=== PATIENT | female | born 1990 | race Caucasian/White ===

== ENCOUNTER 2018-05-06 11:40 | Day surgery (SDC) | payer BC, MEDICAID ==
[2018-05-03 15:20] LABS: BASOPHILS % (AUTO) 0.3 % (0-1); EOSINOPHILS # (AUTO) 0.1 X10'3 (0-0.9); EOSINOPHILS % (AUTO) 1.3 % (0-6); LYMPHOCYTES # (AUTO) 1.5 X10'3 (1.1-4.8); LYMPHOCYTES % (AUTO) 24.4 % (21-51); MEAN CORPUSCULAR HEMOGLOBIN 30.1 PG (27.0-31.0); MEAN CORPUSCULAR HGB CONC 34.7 % (33.0-36.5); MEAN CORPUSCULAR VOLUME 86.8 FL (78-98); MEAN PLATELET VOLUME 9.3 FL (7.4-10.4); MONOCYTES # (AUTO) 0.3 X10'3 (0-0.9); MONOCYTES % (AUTO) 5.3 % (2-12); NEUTROPHILS # (AUTO) 4.3 X10'3 (1.8-7.7); NEUTROPHILS % (AUTO) 68.7 % (42-75); PRE OP HEMATOCRIT 38.6 % (35.0-45.0); PRE OP HEMOGLOBIN 13.4 g/dL (12.0-16.0); PRE OP PLATELET COUNT 250 X10'3 (140-440); RED BLOOD COUNT 4.44 X10'6 (4.20-5.60); RED CELL DISTRIBUTION WIDTH 13.8 % (11.5-14.5)
[2018-05-03 15:54] LABS: HCG SERUM QL NEGATIVE
[2018-05-06] VITALS (8 sets, daily range): BP systolic 102–128; BP diastolic 55–79
[~2018-05-06] VITALS: Ht 170.2 cm; Wt 96.0 kg
[~2018-05-06 11:40] MED LIST: NO HOME MEDS; famotidine 20mg tablet PO ONE; ringers solution, lacted 1,000 ML IV SCH
[2018-05-06] MEDS ORDERED: ringers solution, lacted 1,000 ML IV SCH (15:33)
[2018-05-06] MEDS ORDERED: proCHLORperazine 10 MG/2 ml inj IV PRN (15:35)
[2018-05-06] MEDS ORDERED: morphine 4 MG/ML inj SYRINge IV PRN ×2 (15:35)
[2018-05-06] MEDS ORDERED: meperidine/PF 25mg/ml syringe IV PRN ×3 (15:35)
[2018-05-06] MEDS ORDERED: ondansetron/PF 4mg/2ml inj IV PRN (15:35)
[2018-05-06] MEDS ORDERED: ROPIVAcaine 0.5% (5mg/ml) 30ml vial ONE (16:16)
[2018-05-06] MEDS ORDERED: sevoflurane 250ml liquid IH ONE (16:32)
[2018-05-06] MEDS ORDERED: dexamethasone sod phosphate 10mg/ml inj ONE (16:32)
[2018-05-06] MEDS ORDERED: neostigmine methylsulfate 1 MG/ML 10ml vial ONE (16:32)
[2018-05-06] MEDS ORDERED: ketorolac trometh. 30mg/ml inj. ONE (16:32)
[2018-05-06] MEDS ORDERED: glycopyrrolate 0.2mg/ml inj ONE (16:32)
[2018-05-06] MEDS ORDERED: fentaNYL/PF 50MCG/1 ML 2ML syringe ONE (16:41)
[2018-05-06] MEDS ORDERED: propofol inj 20 ML IV ONE (16:44)
[2018-05-06] MEDS ORDERED: midazolam 2 mg/2 ml injection ONE (16:44)
[2018-05-06] MEDS ORDERED: LIDOcaine 1%/PF 5ML 10 MG/ML VIAL ONE (16:44)
[2018-05-06] MEDS ORDERED: rocuronium 10mg/ml inj IV ONE (16:46)
[2018-05-06] MEDS ORDERED: ondansetron/PF 4mg/2ml inj ONE (16:53)
[2018-05-06] MEDS ORDERED: oxyCODONE/APAP 5-325mg tablet PO ONE ×2 (17:25)
[2018-05-06] MEDS ORDERED: oxyCODONE/APAP 5-325mg tablet PO PRN ×2 (17:35)
== END 2018-05-06 18:25 | disposition home or self-care (01) ==
LOC: PAS 11:40
PROVIDERS: ATTEND Obstetrics & Gynecology
DX: Z30.2 Encounter for sterilization (principal); G43.909 Migraine, unspecified, not intractable, without status migrainosus; F41.8 Other specified anxiety disorders; E66.9 Obesity, unspecified; Z68.33 Body mass index [BMI] 33.0-33.9, adult; Z87.891 Personal history of nicotine dependence; Z79.899 Other long term (current) drug therapy; Z88.8 Allergy status to other drugs, medicaments and biological substances
CPT/HCPCS: 36415; 58671; 84703; 85025; 86885; 86900; 86901; A4264; J1100; J1885; J2001; J2175; J2250; J2405; J2704; J2710; J2795; J3010; J3490; J7120

== ENCOUNTER 2024-05-05 15:53 | Emergency (ER) | payer BC, MEDICAID, OTHER ==
[~2024-05-05] VITALS: Ht 170.2 cm; Wt 129.9 kg
[~2024-05-05 15:53] MED LIST changes: -famotidine 20mg tablet PO ONE; -ringers solution, lacted 1,000 ML IV SCH
[2024-05-05] MEDS: dexamethasone sod phosphate 10mg/ml inj IM STA (17:40)
[2024-05-05] MEDS: diphenhydrAMINE 50 mg/ml inj IM ONE (17:40)
[2024-05-05] MEDS ORDERED: PRED20TA PO (17:48)
[2024-05-05 17:57] VITALS: BP 126/66; PULSE 90; RESP 18; TEMP 98; O2SAT 99
== END 2024-05-05 17:59 | disposition home or self-care (01) ==
LOC: ER 15:54
DX: L23.89 Allergic contact dermatitis due to other agents (principal); Z79.52 Long term (current) use of systemic steroids; Z88.8 Allergy status to other drugs, medicaments and biological substances
CPT/HCPCS: 96372; 99284; J1100; J1200